=== PATIENT | male | born 1970 | race American Indian/Alaskan Native ===

== ENCOUNTER 2019-02-22 09:59 | Day surgery (SDC) | payer OTHER ==
[~2019-02-22 09:59] MED LIST: DIPRIVAN 10 MG/ML IV ONE; NACL 0.9% 1000 ML 1,000 ML IV SCH
--- NOTE | 2019-02-22 13:37 | Operative Report ---
Operative Report Operative Report: Date of procedure: 02/22/2019 Procedure: Colonoscopy Attending physician: Danie Grace M.D. Wedding Photographer: Danie Grace M.D. Indication: Patient is a 48-year-old male who presents for screening colonoscopy. This colonoscopy serves to evaluate patient so that treatment may be directed based on the findings. Consent: Informed consent was obtained after advising the patient and family regarding nature of this procedure, its indications, potential benefits as well as possible complications including but not limited to bleeding perforation and adverse reaction to medication, infection as well as other cardiopulmonary complications. An informed written and verbal consent was then obtained after due opportunity was provided for questions and answers. Monitoring: Patient was monitored continuously with pulse oximetry and electrocardiographic recordings as well as blood pressure recordings. Vital signs remained stable throughout this procedure with no untoward events. Preoperative assessment: Patient was assessed immediately prior to this procedure for capacity to tolerate monitored anesthesia care and moderate sedation as well as general anesthesia. Patient's ASA classification is 2, Mallampati class is 2, Hyomental distance is 3. Instrument: BidKind video colonoscope. Medications: Propofol given intravenously in divided doses. For details please refer to anesthesia records. Description of procedure: Patient was placed in the left lateral decubitus position after achieving sedation, a digital rectal examination was performed following which the colonoscope was introduced into the anal verge and advanced to the cecum which was identified by the cecal valve, the appendiceal orifice, as well as by the cecal strap and direct transillumination. The colonoscope was subsequently withdrawn with careful inspection of all mucosal surfaces. Patient tolerated this procedure well and was subsequently taken to the recovery room. The following findings were noted. Findings: The patient had substantial retained stool in the cecum and ascending colon and proximal transverse colon. Although an attempt was made to irrigate this area, the stool density was significant and precluded optimal visualization of this section. On a retroflexed view of the anal verge, patient had internal hemorrhoids. Impression: Substantial retained stool and poor visualization of the colon. Internal hemorrhoids. Plan: High-fiber diet. Repeat colonoscopy in 6-12 months.
[2019-02-22 13:54] VITALS: BP 126/78
--- NOTE | 2019-02-22 14:15 | Discharge Summary ---
Short Stay Discharge Plan Activity: advance as tolerated Weight Bearing Status: Weight Bear as Tolerated Diet: regular Additional Instructions: Post Sedation D/C Instructions When you return home you may resume your regular diet unless otherwise directed. -Go directly home from the hospital and rest quietly. You may resume normal activities tomorrow. -Do NOT drive, return to work, operate any machinery or make any important personal or business decisions today. -Do NOT drink any alcohol or take nerve or sleeping drugs. They add to the effects of the medicine still present in your body. HIGH FIBER DIET. REPEAT COLONOSCOPY IN 6-12 MONTHS-CALL FOR F/U APPT. Follow up with: [facility] [Primary Care Provider] - 7 Days
--- NOTE | 2019-02-22 15:37 | Anesthesia Day of Surgery ---
Anesthesia Day of Surgery - Day of Surgery Patient Examined: Yes Patient H&P Reviewed: Yes Patient is NPO: Yes Beta Blockers: No Cardiac Clearance: No Pulmonary Clearance: No Michael's Test: N/A
--- NOTE | 2019-02-22 15:38 | Post Anesthesia Evaluation ---
- Post Anesthesia Evaluation Patient Participated: Yes Airway Patent: Yes Stable Respiratory Function: Yes Nausea/Vomiting: No Temp > 96.8F: Yes Pain Manageable: Yes Adequeate Hydration: Yes Anesthesia Complications: No Block Receding Appropriately: Not Applicable Patient on Ventilator: No
--- NOTE | 2019-02-22 15:38 | Anesthesia Consultation ---
Anesthesia Consult and Med Hx - Airway Anesthetic Teeth Evaluation: Good ROM Head & Neck: Adequate Mental/Hyoid Distance: Adequate Mallampati Class: Class I Intubation Access Assessment: Good - Pulmonary Exam CTA: Yes - Cardiac Exam Cardiac Exam: RRR - Pre-Operative Health Status ASA Pre-Surgery Classification: ASA2 Proposed Anesthetic Plan: General, TIVA - Cardiovascular System Hx Hypertension: Yes - Endocrine Hx Non-Insulin Dependent Diabetes: Yes - Other Systems Hx Cancer: No
== END 2019-02-22 14:30 | disposition home or self-care (01) ==
LOC: GIO 09:59
PROVIDERS: ATTEND Internal Medicine Gastroenterology
DX: Z12.11 Encounter for screening for malignant neoplasm of colon (principal); K64.8 Other hemorrhoids; I10 Essential (primary) hypertension; E11.9 Type 2 diabetes mellitus without complications; F32.9 Major depressive disorder, single episode, unspecified; Z79.899 Other long term (current) drug therapy
CPT/HCPCS: 45378; 82962; J2704; J7030

== ENCOUNTER 2019-07-30 10:54 | Day surgery (SDC) | payer OTHER ==
[~2019-07-30 10:54] MED LIST changes: -DIPRIVAN 10 MG/ML IV ONE
[2019-07-30] MEDS ORDERED: DIPRIVAN 10 MG/ML IV ONE (12:12)
--- NOTE | 2019-07-30 12:27 | Anesthesia Consultation ---
Anesthesia Consult and Med Hx Date of service: 07/30/19 - Airway Anesthetic Teeth Evaluation: Good ROM Head & Neck: Adequate Mental/Hyoid Distance: Adequate Mallampati Class: Class III Intubation Access Assessment: Possibly Difficult - Pulmonary Exam CTA: Yes - Cardiac Exam Cardiac Exam: RRR - Pre-Operative Health Status ASA Pre-Surgery Classification: ASA2 Proposed Anesthetic Plan: MAC - Pulmonary Hx Sleep Apnea: Yes - Cardiovascular System Hx Hypertension: Yes - Central Nervous System CVA: No - Endocrine Hx Renal Disease: No Hx Liver Disease: No Hx Non-Insulin Dependent Diabetes: Yes
--- NOTE | 2019-07-30 12:27 | Anesthesia Day of Surgery ---
Anesthesia Day of Surgery - Day of Surgery Patient Examined: Yes Patient H&P Reviewed: Yes Patient is NPO: Yes
[2019-07-30] MEDS ORDERED: XYLOCAINE MPF 2% ONE (13:00)
--- NOTE | 2019-07-30 13:03 | Operative Report ---
Operative Report Operative Report: Date of procedure: 07/30/2019 Procedure: Colonoscopy with Multiple Hot Biopsy Polypectomies, ablation of Colon polyp. Attending physician: Danie Grace M.D. Harness Fitter: Danie Grace MD Indication: Patient is a 48-year-old male who presents for screening colonoscopy. Patient had a poor colonoscopic preparation on his colonoscopy in February 2019. Patient has past history of colon polyps. He had an colonoscopy in February 2019 with substantial retained stool and relatively poor colonoscopic preparation . Patient was to have repeat colonoscopy in 6 months to one year. Patient presented this time for a repeat colonoscopy for colorectal cancer screening because of poor colonoscopic preparation . This colonoscopy serves to evaluate patient so that treatment may be directed based on the findings. Prior to patients procedure, his history and physical was reviewed in detail. Medications and allergies were also reviewed in detail and patient was felt to be an appropriate candidate for colonoscopy. Consent: Informed consent was obtained after advising the patient and family regarding nature of this procedure, its indications, potential benefits as well as possible complications including but not limited to bleeding perforation and adverse reaction to medication, infection as well as other cardiopulmonary complications. An informed written and verbal consent was then obtained after due opportunity was provided for questions and answers. Monitoring: Patient was monitored continuously with pulse oximetry and electrocardiographic recordings as well as blood pressure recordings. Vital signs remained stable throughout this procedure with no untoward events. Preoperative assessment: Patient was assessed immediately prior to this procedure for capacity to tolerate monitored anesthesia care and moderate sedation as well as general anesthesia. Patient's ASA classification is 3, Mal lampati class is 2, Hyomental distance is 3. Instrument: Olympus video colonoscope:[id number] Medications: Propofol given intravenously in divided doses. For details please refer to anesthesia records. Description of procedure: Patient was placed in the left lateral decubitus position after achieving sedation, a digital rectal examination was performed following which the colonoscope was introduced into the anal verge and advanced to the cecum which was identified by the cecal valve, the appendiceal orifice, as well as by the cecal strap and direct transillumination. The colonoscope was subsequently withdrawn with careful inspection of all mucosal surfaces. Patient tolerated this procedure well and was subsequently taken to the recovery room. The following findings were noted. Findings: The preparation was fair. The [place] prep scale score total was 6. Patient had some liquid stool in various sections of the colon which was irrigated and removed. The overall preparation was therefore deemed adequate. There was adequate withdrawal time from the cecum to the rectum of greater than 6 minutes. Patient had a diminutive sessile polyp in the cecum which measured 4-5 mm. The polyp was removed by hot biopsy polypectomy and ablation and was retrieved. There were 2 additional diminutive polyps in the sigmoid colon measuring 4-6 mm there were removed by hot biopsy polypectomy and retrieved. There were no other gross mucosal abnormalities seen. The rest of the colon to the cecum was grossly normal. On the retroflex view at the anal verge, patient had internal hemorrhoids. Impression: Diminutive cecal polyp status post hot biopsy polypectomy and polyp ablation. Diminutive sigmoid colon polyps status post hot biopsy polypectomy. Internal hemorrhoids. Retained liquid stool. Plan: Follow pathology report. High-fiber diet. Repeat colonoscopy in 5 year.
--- NOTE | 2019-07-30 13:04 | Discharge Summary ---
Short Stay Discharge Plan Activity: advance as tolerated Weight Bearing Status: Weight Bear as Tolerated Diet: regular Follow up with: [facility] [Primary Care Provider] - 7 Days
[2019-07-30 13:31] VITALS: BP 125/86
== END 2019-07-30 13:35 | disposition home or self-care (01) ==
LOC: GIO 10:54
PROVIDERS: ATTEND Internal Medicine Gastroenterology
DX: Z09 Encounter for follow-up examination after completed treatment for conditions other than malignant neoplasm (principal); D12.0 Benign neoplasm of cecum; F41.9 Anxiety disorder, unspecified; F32.9 Major depressive disorder, single episode, unspecified; E11.9 Type 2 diabetes mellitus without complications; G47.30 Sleep apnea, unspecified; I10 Essential (primary) hypertension; M06.9 Rheumatoid arthritis, unspecified; Z86.010 Personal history of colon polyps; Z79.899 Other long term (current) drug therapy
CPT/HCPCS: 45384; 45388; 82962; 88305; J2704